=== PATIENT | male | born 2000 | race Caucasian/White ===

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

== ENCOUNTER 2020-06-10 21:34 | Emergency (ER) | payer OTHER, SELFPAY ==
[2020-06-10 21:35] VITALS: BP 143/75; PULSE 61; RESP 18; TEMP 36.6; O2SAT 99; BMI 28.2
--- NOTE | 2020-06-10 21:57 | ED.DCSUM_ITS ---
- ER Visit Summary Date of Service: 06/10/20 Chief Complaint: Right heel laceration History of Present Illness: The patient is a 19 M who presents with a laceration to his right heel that occurred today. Patient states he was diving into a pool when he cut it on a metal bar. Patient states the pain is dull. Patient states nothing makes the pain better or worse. Patient denies any paresthesias or weakness. Patient states his immunizations are up-to-date. Patient states this occurred approximately 1 to 2 hours prior to arrival. Patient states the bleeding stopped after several minutes of pressure. Physical Examination: Vital signs are stable. Patient is afebrile. Patient is in no acute distress. Skin is warm and dry. There is approximately 5 cm full- thickness linear laceration over the posterior lateral aspect of the right heel. There is moderate gapping of the wound margins. There are no foreign bodies visualized. Achilles tendon is intact. Sensation was intact light touch in all digits. Pedal pulses are equal bilaterally. Capillary refill is less than 2 seconds in all digits. There is full range of motion of the right ankle and foot. Emergency Department Course and Treatment: The wound was cleaned and irrigated with copious amounts of normal saline. The wound was anesthetized with 1% plain lidocaine locally. The wound was closed with 6 horizontal mattress #4-0 nylon sutures under sterile technique. Patient tolerated the procedure well. Bacitracin dressing was applied. Patient was instructed to follow-up with his primary care physician in 7 to 10 days for wound recheck and suture removal. Patient and his mother understood and were agreeable with the plan. All questions were answered. Disposition: Discharge home Impression: 1. Right heel laceration This note was generated with [employer] dictation software. It may contain incorrect words, spelling, and punctuation that were not noted in review of the chart prior to signing ED Disposition - Plan for ED Patient: Disposition: Home or Assisted Living Diagnosis: Laceration of right heel Instructions: ED Laceration Ext Sutr Stap Tape Referrals: Denise Mujica MD [Primary Care Provider] - 7 Days for suture removal
[2020-06-10] MEDS: BACITRACIN 15 GM Tube 1 APPLIC TOPICAL (22:29)
== END 2020-06-11 00:04 | disposition home or self-care (01) ==
PROVIDERS: Emergency Provider Emergency Medicine; PCP Pediatrics
DX: S91.311A Laceration without foreign body, right foot, initial encounter (principal); W26.8XXA Contact with other sharp object(s), not elsewhere classified, initial encounter
CPT/HCPCS: 12002; 99284